=== PATIENT | female | born 1950 | race Caucasian/White ===

== ENCOUNTER 2021-06-30 17:28 | Outpatient (REF) | payer MEDICARE, SELFPAY ==
[2021-06-30 17:32] LABS: HCT 45.3 % (36.0-46.0); HGB 14.1 g/dL (11.2-15.7); MCH 28.8 pg (27.0-33.0); MCHC 31.1 % (32.0-36.0); MCV 92.4 fL (80-95); MPV 10.5 fL (8.0-11.0); Platelet Count 300 10^3/uL (130-400); RDW 13.4 % (11.7-14.6); RDW-SD 45.6 fL; WBC 8.31 10^3/uL (4.4-10.8)
[2021-06-30 18:18] LABS: ALT 25 U/L (14-59); AST 21 U/L (15-37); Albumin 4.2 g/dL (3.4-5.0); Alkaline Phosphatase 101 U/L (46-116); Anion Gap 9.8 mmol/L (3-11); BUN 17 mg/dL (7-18); Bilirubin, Total 0.4 mg/dL (0.2-1.0); CO2 27.2 mmol/L (21.0-32.0); Calcium 9.1 mg/dL (8.5-10.1); Chloride 102 mmol/L (98-107); Estimated GFR 54.66 (mL/min/1.73m2); Glucose 94 mg/dL (74-106); Potassium 4.7 mmol/L (3.5-5.1); Sodium 139 mmol/L (136-145); Total Protein 8.1 g/dL (6.4-8.2)
[2021-07-01 10:33] LABS: Calculated LDL 148 mg/dL (<100); Cholesterol 227 mg/dL (<200); HDL Cholesterol 63 mg/dL (40-60); Triglyceride 81 mg/dL (<150)
== END 2021-06-30 17:29 | disposition home or self-care (01) ==
LOC: NCHCN 17:28
PROVIDERS: Visit Provider Nurse Practitioner Family
DX: Z13.220 Encounter for screening for lipoid disorders; R53.83 Other fatigue; E66.9 Obesity, unspecified; U09.9 Post COVID-19 condition, unspecified
CPT/HCPCS: 80053; 80061; 85027; 84443

== ENCOUNTER 2022-01-26 09:39 | Outpatient (REF) | payer MEDICARE, SELFPAY ==
[2022-01-26 14:50] LABS: ESR 68 mm/hr (0-30)
[2022-01-26 14:51] LABS: Abs Immature Grans 0.04 10^3/uL (0.0-0.06); Absolute Basophil Count 0.05 10^3/uL (0.0-0.2); Absolute Eosinophil Count 0.03 10^3/uL (0.0-0.7); Absolute Lymphocyte Count 0.96 10^3/uL (1.2-3.4); Absolute Monocyte Count 0.57 10^3/uL (0.1-0.8); Absolute Neutrophil Count 8.97 10^3/uL (1.2-6.7); Basophils % 0.5; Eosinophils % 0.3; HCT 38.9 % (36.0-46.0); HGB 12.6 g/dL (11.2-15.7); Immature Grans % 0.4; MCH 28.6 pg (27.0-33.0); MCHC 32.4 % (32.0-36.0); MCV 88 fL (80-95); Monocytes % 5.4; Neutrophils % 84.4; Platelet Count 405 10^3/uL (130-400); RDW 13.3 % (11.7-14.6); RDW-SD 43.4 fL; WBC 10.62 10^3/uL (4.4-10.8)
[2022-01-26 15:02] LABS: ALT 21 U/L (14-59); AST 20 U/L (15-37); Albumin 3.6 g/dL (3.4-5.0); Alkaline Phosphatase 80 U/L (46-116); Anion Gap 8.8 mmol/L (3-11); BUN 22 mg/dL (7-18); Bilirubin, Total 0.4 mg/dL (0.2-1.0); C-Reactive Protein 3.73 mg/dL (0.0-0.3); CO2 26.2 mmol/L (21.0-32.0); Calcium 9.2 mg/dL (8.5-10.1); Chloride 102 mmol/L (98-107); Estimated GFR 54.66 (mL/min/1.73m2); Glucose 125 mg/dL (74-106); Potassium 4.5 mmol/L (3.5-5.1); Sodium 137 mmol/L (136-145)
[2022-01-27 10:07] LABS: Cyclic Citrullinated Peptide <2.5 U/mL (<5.0)
[2022-01-27 11:39] LABS: Lyme Ab w Rflx to Lyme Confirm Negative (Negative)
[2022-01-27 12:46] LABS: ANA Interpretation Positive (Negative); ANA Titer Pattern 1:160 Homogeneous
[2022-01-28 09:28] LABS: Anaplasma phagocytophilum Negative (Negative); B. miyamotoi PCR Negative (Negative); Babesia divergens/MO-1 Negative (Negative); Babesia duncani Negative (Negative); Babesia microti Negative (Negative); Ehrlichia chaffeensis Negative (Negative); Ehrlichia ewingii/canis Negative (Negative); Ehrlichia muris eauclairensis Negative (Negative)
== END 2022-01-26 09:40 | disposition home or self-care (01) ==
LOC: NCHCN 09:39
PROVIDERS: Visit Provider Nurse Practitioner Family
DX: M79.18 Myalgia, other site (principal)
CPT/HCPCS: 80053; 85652; 86200; 87798; 85025; 86038; 86140; 86618

== ENCOUNTER 2022-02-02 11:03 | Outpatient (REF) | payer MEDICARE, SELFPAY ==
[2022-02-02 15:56] LABS: ESR 56 mm/hr (0-30)
[2022-02-02 16:48] LABS: C-Reactive Protein 0.98 mg/dL (0.0-0.3)
[2022-02-02 16:59] LABS: Calculated LDL 122 mg/dL (<100); Cholesterol 204 mg/dL (<200); HDL Cholesterol 66 mg/dL (40-60); Triglyceride 82 mg/dL (<150)
== END 2022-02-02 11:04 | disposition home or self-care (01) ==
LOC: NCHCN 11:03
PROVIDERS: Visit Provider Nurse Practitioner Family
DX: E78.5 Hyperlipidemia, unspecified (principal); M35.3 Polymyalgia rheumatica
CPT/HCPCS: 80061; 85652; 86140

== ENCOUNTER 2022-03-14 15:29 | Outpatient (REF) | payer MEDICARE, SELFPAY ==
[2022-03-14 14:21] LABS: ESR 38 mm/hr (0-30)
== END 2022-03-14 15:30 | disposition home or self-care (01) ==
LOC: NCHCN 15:29
PROVIDERS: Visit Provider Nurse Practitioner Family
DX: M35.3 Polymyalgia rheumatica (principal)
CPT/HCPCS: 85652; 86140

== ENCOUNTER 2022-03-28 16:56 | Outpatient (REF) | payer MEDICARE, SELFPAY ==
[2022-03-28 14:22] LABS: ESR 27 mm/hr (0-30)
[2022-03-28 14:52] LABS: C-Reactive Protein 1.04 mg/dL (0.0-0.3)
== END 2022-03-28 16:57 | disposition home or self-care (01) ==
LOC: NCHCN 16:56
PROVIDERS: Visit Provider Nurse Practitioner Family
DX: M35.3 Polymyalgia rheumatica (principal); E78.5 Hyperlipidemia, unspecified
CPT/HCPCS: 85652; 86140

== ENCOUNTER 2022-04-18 15:53 | Outpatient (REF) | payer MEDICARE, SELFPAY ==
[2022-04-18 14:44] LABS: ESR 35 mm/hr (0-30)
[2022-04-18 14:56] LABS: C-Reactive Protein 0.23 mg/dL (0.0-0.3)
== END 2022-04-18 15:54 | disposition home or self-care (01) ==
LOC: NCHCN 15:53
PROVIDERS: Visit Provider Nurse Practitioner Family
DX: M35.3 Polymyalgia rheumatica (principal)
CPT/HCPCS: 85652; 86140

== ENCOUNTER 2022-05-17 18:46 | Outpatient (REF) | payer MEDICARE, SELFPAY ==
[2022-05-17 15:13] LABS: ESR 24 mm/hr (0-30)
[2022-05-17 16:52] LABS: C-Reactive Protein 0.36 mg/dL (0.0-0.3)
== END 2022-05-17 18:47 | disposition home or self-care (01) ==
LOC: NCHCN 18:46
PROVIDERS: Visit Provider Nurse Practitioner Family
DX: M35.3 Polymyalgia rheumatica (principal)
CPT/HCPCS: 85652; 86140

== ENCOUNTER 2022-06-19 10:56 | Outpatient (REF) | payer MEDICARE, SELFPAY ==
[2022-06-19 15:00] LABS: ESR 36 mm/hr (0-30)
[2022-06-19 15:23] LABS: C-Reactive Protein 0.31 mg/dL (0.0-0.3)
== END 2022-06-19 10:57 | disposition home or self-care (01) ==
LOC: NCHCN 10:56
PROVIDERS: Visit Provider Nurse Practitioner Family
DX: M35.3 Polymyalgia rheumatica (principal)
CPT/HCPCS: 85652; 86140

== ENCOUNTER 2022-07-18 18:24 | Outpatient (REF) | payer MEDICARE, SELFPAY ==
[2022-07-18 20:30] LABS: ESR 35 mm/hr (0-30)
[2022-07-18 21:13] LABS: Anion Gap 8.2 mmol/L (3-11); BUN 25 mg/dL (7-18); C-Reactive Protein 0.22 mg/dL (0.0-0.3); CO2 29.8 mmol/L (21.0-32.0); CREATININE 1.2 mg/dL (0.55-1.02); Calcium 9.8 mg/dL (8.5-10.1); Chloride 99 mmol/L (98-107); Estimated GFR 48.09 (mL/min/1.73m2); Glucose 155 mg/dL (74-106); Potassium 4.2 mmol/L (3.5-5.1); Sodium 137 mmol/L (136-145)
== END 2022-07-18 18:25 | disposition home or self-care (01) ==
LOC: NCHCN 18:24
PROVIDERS: Visit Provider Nurse Practitioner Family
DX: I82.90 Acute embolism and thrombosis of unspecified vein (principal); M35.3 Polymyalgia rheumatica
CPT/HCPCS: 80048; 85652; 86140

== ENCOUNTER 2022-09-21 15:58 | Outpatient (REF) | payer MEDICARE, SELFPAY ==
[2022-09-21 14:26] LABS: ESR 42 mm/hr (0-30)
[2022-09-21 14:39] LABS: C-Reactive Protein 0.42 mg/dL (0.0-0.3)
== END 2022-09-21 15:59 | disposition home or self-care (01) ==
LOC: NCHCN 15:58
PROVIDERS: Visit Provider Nurse Practitioner Family
DX: M35.3 Polymyalgia rheumatica (principal)
CPT/HCPCS: 85652; 86140

== ENCOUNTER 2022-10-27 15:31 | Outpatient (REF) | payer MEDICARE, SELFPAY ==
[2022-10-27 14:43] LABS: ESR 33 mm/hr (0-30)
[2022-10-27 15:23] LABS: C-Reactive Protein 0.43 mg/dL (0.0-0.3)
== END 2022-10-27 15:32 | disposition home or self-care (01) ==
LOC: NCHCN 15:31
PROVIDERS: Visit Provider Nurse Practitioner Family
DX: M35.3 Polymyalgia rheumatica (principal)
CPT/HCPCS: 85652; 86140

== ENCOUNTER 2022-12-08 11:33 | Outpatient (REF) | payer MEDICARE, SELFPAY ==
[2022-12-08 14:36] LABS: ESR 35 mm/hr (0-30)
== END 2022-12-08 11:34 | disposition home or self-care (01) ==
LOC: NCHCN 11:33
PROVIDERS: Visit Provider Nurse Practitioner Family
DX: M35.3 Polymyalgia rheumatica (principal)
CPT/HCPCS: 85652; 86140

== ENCOUNTER 2023-02-12 09:49 | Outpatient (REF) | payer MEDICARE, SELFPAY ==
--- OUTSIDE RECORDS SUMMARY | 2023-02-12 10:03 | XMS_ITS | Continuity of Care Document ---
Author Name Unknown Organization [facility] Address [address] [place] [address] Encounter [facility] Date(s): 04/03/22 - 04/03/22 [facility] [address] [place] [address] Encounter Diagnosis Deep vein thrombosis(Discharge Diagnosis) - 04/03/22 Discharge Disposition: Home Attending Physician: Tadeo Berumen MD Admitting Physician: Tadeo Berumen MD Allergies, Adverse Reactions, Alerts No Known Medication Allergies Functional Status 04/03/22 Family Member Travel History No recent t ravel Recent Travel History No recent travel Other exposure to Infectious Disease Non e Medications predniSONE 15 mg =, 0 Refill(s) Start Date: 04/03/22 Status: Ordered rivaroxaban 15 mg oral tablet 15 mg = 1 tab, Oral, BID, with food, # 42 tab, 0 Refill(s), Pharmacy: [facility] #[id number], 172, cm, 04/03/22 14:48:00 EDT, Height/Length Dosing, 108, kg, 04/03/22 14:48:00 EDT, Weight Dosing Start Date: 04/03/22 Stop Date: 04/24/22 Status: Ordered Results Laboratory List Name Date .Manual Differential ([facility]) 04/03/22 Basic Metabolic Panel (BMP) 04/03/22 CBC w/ Diff 04/03/22 D-Dimer 04/03/22 Most recent to oldest [Reference Range]: 1 WBC [5.0-10.0 x10^3/mcL] 11.8 x10^3/mcL *HI* (04/03/22 4:10 PM) RBC [4.1-5.3 x10^6/mcL] 4.6 x10^6/mcL (04/03/22 4:10 PM) Segs Man [40-75 %] 87 % *HI* (04/03/22 4:10 PM) Lymph Man [20-50 %] 6 % *LOW* (04/03/22 4:10 PM) [place] Man 7 % *NA* (04/03/22 4:10 PM) Eos Man 0 % *NA* (04/03/22 4:10 PM) BUN [7-18 mg/dL] 11 mg/dL (04/03/22 4:10 PM) Glucose Level [74-106 mg/dL] 114 mg/dL *HI* (04/03/22 4:10 PM) Potassium Level [3.5-5.1 mmol/L] 3.9 mmo l/L (04/03/22 4:10 PM) MCV [80.0-103.0 fL] 90.4 fL (04/03/22 4:10 PM) RBC Morph Normal (04/03/22 4:10 PM) MCHC [31.0-35.0 g/dL] 32.7 g/dL (04/03/22 4:10 PM) Sodium Level [136-145 mmol/L] 140 mmol/L (04/03/22 4:10 PM) Hct [37.0-47.0 %] 41.3 % (04/03/22 4:10 PM) Calcium Level [8.5-10.1 mg/dL] 9.2 mg/dL (04/03/22 4:10 PM) MCH [26.0-32.0 pg] 29.5 pg (04/03/22 4:10 PM) Hgb [12.0-16.0 g/dL] 13.5 g/dL (04/03/22 4:10 PM) Toxic Gran Small (04/03/22 4:10 PM) Band Man [0-5 %] 0 % (04/03/22 4:10 PM) Platelets [130-450 x10^3/mcL] 237 x10^3/ mcL (04/03/22 4:10 PM) CO2 [21-32 mmol/L] 28 mmol/L (04/03/22 4:10 PM) eGFR Non-AA [>=60] 70 (04/03/22 4:10 PM) eGFR AA [>=60] 70 (04/03/22 4:10 PM) Chloride Level [98-107 mmol/L] 104 mmol/ L (04/03/22 4:10 PM) RDW-CV [11.7-17.0 %] 14.7 % (04/03/22 4:10 PM) Abs Neut Man 10.3 x10^3/mcL *NA* (04/03/22 4:10 PM) Creatinine Level [0.55-1.02 mg/dL] 0.88 mg/dL (04/03/22 4:10 PM) Anion Gap [8-16 mmol/L] 8 mmol/L (04/03/22 4:10 PM) Baso Man [0-1 %] 0 % (04/03/22 4:10 PM) D Dimer, (Quant.) [0.00-0.50 mg/L] 4.45 mg/L *HI* (04/03/22 4:10 PM) Vital Signs Most recent to oldest [Reference Range]: 1 Temperature Temporal Artery [36-38 Deg C ] 36.2 Deg C (04/03/22 2:36 PM) Peripheral Pulse Rate [60-100 bpm] 99 bp m (04/03/22 2:36 PM) Respiratory Rate [12-24 br/min] 18 br/mi n (04/03/22 2:36 PM) Blood Pressure [90-140/60-90 mmHg] 177/7 1mmHg *HI* (04/03/22 2:36 PM) Weight Dosing 108.00 kg (04/03/22 2:48 PM) Weight Estimated 108.00 kg (04/03/22 2:36 PM) Height/Length Dosing 172.000 cm (04/03/22 2:48 PM) Height/Length Estimated 172.000 cm (04/03/22 2:36 PM) Social History Social History Type Response Tobacco Never tobacco user T obacco Use:. Sex Hospital Discharge Instructions Patient Education 04/03/2022 15:23:45 Deep Vein Thrombosis Deep Vein Thrombosis Deep vein thrombosis (DVT) is a condition in which a blood clot forms in a deep vein, such as a vein in the lower leg, thigh, pelvis, or arm. Deep veins are veins in the deep venous system. A clot isblood that has thickened into a gel or solid. This condition is serious and can be life-threateningif the clot travels to the lungs and causes a blockage (pulmonary embolism) in the arteries of the l bessy. A DVT can also damage veins in the leg. This can lead to long-term, or chronic, venous disease, leg pain, swelling, discoloration, and ulcers or sores (post-thrombotic syndrome). What are the causes? This condition may be caused by: ??? A slowdown of blood flow. ??? Damage to a vein. ??? A condition that causes blood to clot more easily, such as certain blood- clotting disorders. What increases the risk? The following factors may make you more likely to develop this condition: ??? Having obesity. ??? Being older, especially older than age 60. ??? Being inactive (sedentary lifestyle) or not moving around. This may include: ??? Sitting or lying down for longer than 4???6 hours other than to sleep at night. ??? Being in the hospital, having major or lengthy surgery, or having a thin, flexible tube (central line catheter) placed in a large vein. ??? Being , giving , or having recently given . ??? Taking medicines that contain estrogen, such as control or hormone replacement therapy. ??? Using products that contain nicotine or tobacco, especially if you use hormonal control. ??? Having a history of blood clots or a blood-clotting disease, a blood vessel disease (peripheralvascular disease), or congestive heart disease. ??? Having a history of cancer, especially if being treated with chemotherapy. What are the signs or symptoms? Symptoms of this condition include: ??? Swelling, pain, pressure, or tenderness in an arm or a leg. ??? An arm or a leg becoming warm, red, or discolored. ??? A leg turning very pale. You may have a large DVT. This is rare. If the clot is in your leg, you may notice symptoms more or have worse symptoms when you stand or walk. In some cases, there are no symptoms. How is this diagnosed? This condition is diagnosed with: ??? Your medical history and a physical exam. ??? Tests, such as: ??? Blood tests to check how well your blood clots. ??? Doppler ultrasound. This is the best way to find a DVT. ??? Venogram. Contrast dye is injected into a vein, and X-rays are taken to check for clots. How is this treated? Treatment for this condition depends on: ??? The cause of your DVT. ??? The size and location of your DVT, or having more than one DVT. ??? Your risk for bleeding or developing more clots. ??? Other medical conditions you may have. Treatment may include: ??? Taking a blood thinner, also called an anticoagulant, to prevent clots from forming and growing. ??? Wearing compression stockings, if directed. ??? Injecting medicines into the affected vein to break up the clot (catheter- directed thrombolysis). This is used only for severe DVT and only if a specialist recommends it. ??? Specific surgical procedures, when DVT is severe or hard to treat. These may be done to: ??? Isolate and remove your clot. ??? Place an inferior vena cava (IVC) filter in a large vein to catch blood clots before they reachyour lungs. You may get some medical treatments for 6 months or longer. Follow these instructions at home: If you are taking blood thinners: ??? Talk with your health care provider before you take any medicines that contain aspirin or NSAIDs, such as ibuprofen. These medicines increase your risk for dangerous bleeding. ??? Take your medicine exactly as told, at the same time every day. Do not skip a dose. Do not takemore than the prescribed dose. This is important. ??? Ask your health care provider about foods and medicines that could change the way your blood thinner works (may interact). Avoid these foods and medicines if you are told to do so. ??? Avoid anything that may cause bleeding or bruising. You may bleed more easily while taking blood thinners. ??? Be very careful when using knives, scissors, or other sharp objects. ??? Use an electric razor instead of a blade. ??? Avoid activities that could cause injury or bruising, and follow instructions for preventing falls. ??? Tell your health care provider if you have had any internal bleeding, bleeding ulcers, or neurologic diseases, such as strokes or cerebral aneurysms. ??? Wear a medical alert bracelet or carry a card that lists what medicines you take. General instructions ??? Take [id number] and prescription medicines only as told by your health care provider. ??? Return to your normal activities as told by your health care provider. Ask your health care provider what activities are safe for you. ??? If recommended, wear compression stockings as told by your health care provider. These stockings help to prevent blood clots and reduce swelling in your legs. ??? Keep all follow-up visits as told by your health care provider. This is important. Contact a health care provider if: ??? You miss a dose of your blood thinner. ??? You have new or worse pain, swelling, or redness in an arm or a leg. ??? You have worsening numbness or tingling in an arm or a leg. ??? You have unusual bruising. Get help right away if: ??? You have signs or symptoms that a blood clot has moved to the lungs. These may include: ??? Shortness of breath. ??? Chest pain. ??? Fast or irregular heartbeats (palpitations). ??? Light-headedness or dizziness. ??? Coughing up blood. ??? You have signs or symptoms that your blood is too thin. These may include: ??? Blood in your vomit, stool, or urine. ??? A cut that will not stop bleeding. ??? A menstrual period that is heavier than usual. ??? A severe headache or confusion. These symptoms may represent a serious problem that is an emergency. Do not wait to see if the symptoms will go away. Get medical help right away. Call your local emergency services (911 in the [place] Do not drive yourself to the hospital. Summary ??? Deep vein thrombosis (DVT) happens when a blood clot forms in a deep vein. This may occur in the lower leg, thigh, pelvis, or arm. ??? Symptoms affect the arm or leg and can include swelling, pain, tenderness, warmth, redness, or discoloration. ??? This condition may be treated with medicines or compression stockings. In severe cases, surgerymay be done. ??? If you are taking blood thinners, take them exactly as told. Do not skip a dose. Do not take more than is prescribed. ??? Get help right away if you have shortness of breath, chest pain, fast or irregular heartbeats, or blood in your vomit, urine, or stool. This information is not intended to replace advice given to you by your health care provider. Make sure you discuss any questions you have with your health care provider. Document Revised: 06/18/2020 Document Reviewed: 06/19/2020 [employer] Patient Education ?? 2021 [employer]
[2023-02-12 14:44] LABS: ESR 40 mm/hr (0-30)
[2023-02-12 15:31] LABS: C-Reactive Protein 0.43 mg/dL (0.0-0.3)
== END 2023-02-12 09:50 | disposition home or self-care (01) ==
LOC: NCHCN 09:49
PROVIDERS: Visit Provider Nurse Practitioner Family
DX: M35.3 Polymyalgia rheumatica (principal)
CPT/HCPCS: 85652; 86140

== ENCOUNTER 2023-03-13 13:27 | Outpatient (REF) | payer MEDICARE, SELFPAY ==
[2023-03-13 15:46] LABS: ESR 36 mm/hr (0-30)
[2023-03-13 17:29] LABS: C-Reactive Protein 0.87 mg/dL (0.0-0.3)
== END 2023-03-13 13:28 | disposition home or self-care (01) ==
LOC: NCHCN 13:27
PROVIDERS: PCP Nurse Practitioner Family; Visit Provider Nurse Practitioner Family
DX: M35.3 Polymyalgia rheumatica (principal)
CPT/HCPCS: 85652; 86140

== ENCOUNTER 2023-04-09 11:56 | Outpatient (REF) | payer MEDICARE, SELFPAY ==
[2023-04-09 14:51] LABS: HCT 46.1 % (36.0-46.0); HGB 14.9 g/dL (11.2-15.7); MCH 29.4 pg (27.0-33.0); MCHC 32.3 % (32.0-36.0); MCV 91 fL (80-95); Platelet Count 367 10^3/uL (130-400); RBC 5.06 10^6/uL (3.93-5.22); RDW 13.9 % (11.7-14.6); RDW-SD 46.6 fL; WBC 9.49 10^3/uL (4.4-10.8)
[2023-04-09 15:09] LABS: Anion Gap 8.9 mmol/L (3-11); BUN 22 mg/dL (7-18); C-Reactive Protein 0.55 mg/dL (0.0-0.3); CO2 31.1 mmol/L (21.0-32.0); CREATININE 1.1 mg/dL (0.55-1.02); Calcium 10.2 mg/dL (8.5-10.1); Chloride 99 mmol/L (98-107); Estimated GFR 53.39 (mL/min/1.73m2); Glucose 133 mg/dL (74-106); Potassium 3.6 mmol/L (3.5-5.1); Sodium 139 mmol/L (136-145)
[2023-04-09 15:21] LABS: D-Dimer 1646 ng/mlFEU (<500)
[2023-04-10 09:40] LABS: ESR (LRH) 55 mm/hr
== END 2023-04-09 11:57 | disposition home or self-care (01) ==
LOC: NCHCN 11:56
PROVIDERS: PCP Nurse Practitioner Family; Visit Provider Nurse Practitioner Family
DX: R22.42 Localized swelling, mass and lump, left lower limb (principal); I10 Essential (primary) hypertension; M35.3 Polymyalgia rheumatica
CPT/HCPCS: 80048; 85027; 85652; 85379; 86140

== ENCOUNTER 2024-01-08 14:55 | Outpatient (REF) | payer MEDICARE, SELFPAY ==
[2024-01-08 15:53] LABS: ALT 22 U/L (14-59); AST 39 U/L (15-37); Albumin 3.9 g/dL (3.4-5.0); Alkaline Phosphatase 97 U/L (46-116); BUN 21 mg/dL (7-18); Bilirubin, Total 0.49 mg/dL (0.2-1.0); Calcium 9.6 mg/dL (8.5-10.1); Calculated LDL 124 mg/dL (<100); Chloride 104 mmol/L (98-107); Cholesterol 198 mg/dL (<200); Estimated GFR 59.49 (mL/min/1.73m2); Glucose 101 mg/dL (74-106); HDL Cholesterol 61 mg/dL (40-60); Potassium 4.2 mmol/L (3.5-5.1); Sodium 139 mmol/L (136-145); Total Protein 8.2 g/dL (6.4-8.2); Triglyceride 68 mg/dL (<150)
== END 2024-01-08 14:56 | disposition home or self-care (01) ==
LOC: NCHCN 14:55
PROVIDERS: PCP Nurse Practitioner Family; Visit Provider Nurse Practitioner Family
DX: I10 Essential (primary) hypertension (principal); E78.5 Hyperlipidemia, unspecified
CPT/HCPCS: 80053; 80061

== ENCOUNTER 2025-04-13 16:04 | Outpatient (REF) | payer MEDICARE, SELFPAY ==
[2025-04-13 18:53] LABS: HCT 44.2 % (36.0-46.0); HGB 14.0 g/dL (11.2-15.7); MCH 29.0 pg (27.0-33.0); MCHC 31.7 % (32.0-36.0); MCV 92 fL (80-95); MPV 11.0 fL (8.0-11.0); Platelet Count 438 10^3/uL (130-400); RBC 4.82 10^6/uL (3.93-5.22); RDW 14.1 % (11.7-14.6); RDW-SD 48.1 fL; WBC 8.61 10^3/uL (4.4-10.8)
[2025-04-13 19:10] LABS: Hemoglobin A1C 5.3 % (<5.7)
[2025-04-13 19:16] LABS: ALT 15 U/L (14-59); AST 30 U/L (15-37); Albumin 3.8 g/dL (3.4-5.0); Alkaline Phosphatase 100 U/L (46-116); Anion Gap 10.5 mmol/L (3-11); BUN 26 mg/dL (7-18); Bilirubin, Total 0.5 mg/dL (0.2-1.0); CO2 28.5 mmol/L (21.0-32.0); Calcium 9.0 mg/dL (8.5-10.1); Calculated LDL 64 mg/dL (<100); Chloride 102 mmol/L (98-107); Cholesterol 145 mg/dL (<200); Estimated GFR 43.15 (mL/min/1.73m2); Glucose 128 mg/dL (74-106); HDL Cholesterol 64 mg/dL (>or=50); Potassium 3.6 mmol/L (3.5-5.1); Sodium 141 mmol/L (136-145); TSH 2.19 uIU/mL (0.36-3.74); Total Protein 7.7 g/dL (6.4-8.2); Triglyceride 87 mg/dL (<150)
== END 2025-04-13 16:05 | disposition home or self-care (01) ==
LOC: NCHCN 16:04
PROVIDERS: PCP Nurse Practitioner Family; Visit Provider Nurse Practitioner Family
DX: I25.10 Atherosclerotic heart disease of native coronary artery without angina pectoris (principal); Z13.1 Encounter for screening for diabetes mellitus
CPT/HCPCS: 80053; 80061; 85027; 83036; 84443